=== PATIENT | male | born 1960 ===

== ENCOUNTER 2020-02-19 20:29 | Emergency (ER) | payer SELFPAY ==
[~2020-02-19] VITALS: Ht 180.3 cm; Wt 72.6 kg
[2020-02-19] MEDS ORDERED: CLINDAMYCIN HC300 MG PO (21:21)
--- NOTE | 2020-02-19 21:48 | Emergency Department Note ---
History of Present Illnes History of Present Illness Chief Complaint: General Medicine Complaints History of Present Illness This is a 60 year old male arrives to the ED with wound infections, multiple travel adams noted on evaluation patient is drowsy but awake alert oriented to person place and time refusing to give any further history. Chief Complaint Comment PATIENT IN FROM HOME WITH COMPLAINTS OF STAPH INFECTION ON RIGHT ARM AND LEFT KNEE PAIN AND SWELLING; PATIENT WITH MULTIPLE OPEN SORES NOTED TO ARM AND FOREHEAD. PATIENT STATES "I AM ALLERGIC TO EVERYTHING EXCEPT MORPHINE AND DILAUDID". PATIENT ALERT AND ORIENTED, RESP EVEN AND NONLABORED, APPEARS IN NO DISTRESS, VERY SLEEPY IN TRIAGE Historian: Patient Arrival Mode: Car Onset quality: unable to specify Progression: unable to specify Associated symptoms: Reports denies other symptoms Past Medical/Family History Physician Review I have reviewed the patient's past medical and family history. Any updates have been documented here. Past Medical History Recent Fever: No Clinical Suspicion of Infectio: No New/Unexplained Change in Ment: No Past Medical History: Hypertension Other Surgery: BILATERAL LEG SURGERIES Social History Smoking Cessation: Unknown if ever smoked Family History Family history of heart diseas: No Other Last Tetanus: OOD Review of Systems Review of Systems Constitutional: Reports no symptoms EENTM: Reports no symptoms Cardiovascular: Reports no symptoms Respiratory: Reports no symptoms Gastrointestinal: Reports no symptoms Genitourinary: Reports no symptoms Musculoskeletal: Reports no symptoms Integumentary: Reports as per HPI Neurological: Reports no symptoms Psychological: Reports no symptoms Endocrine: Reports no symptoms Hematological/Lymphatic: Reports no symptoms Physical Exam Related Data Allergies: Coded Allergies: codeine (Verified Allergy, Unknown, 02/19/20) garlic (Verified Allergy, Unknown, 02/19/20) Triage Vital Signs Vital Signs Date Time Temp Pulse Resp B/P (MAP) Pulse Ox O2 Delivery O2 Flow Rate FiO2 02/19/20 20:56 99.2 113 20 184/136 97 Physical Exam CONSTITUTIONAL Constitutional: Present well-developed, Present well-nourished, Present other (poor hygiene) HENT HENT: Present normocephalic, Present atraumatic, Present oropharynx clear/moist, Present nose normal HENT L/R: Present left ext ear normal, Present right ext ear normal EYES Eyes: Reports PERRL, Reports conjunctivae normal NECK Neck: Present ROM normal PULMONARY Pulmonary: Present effort normal, Present breath sounds normal CARDIOVASCULAR Cardiovascular: Present regular rhythm, Present heart sounds normal, Present capillary refill normal, Present normal rate GASTROINTESTINAL Abdominal: Present soft, Present nontender, Present bowel sounds normal GENITOURINARY Genitourinary: Present exam deferred SKIN Skin: Present warm, Present other (multiple abrasions noted in different stages of healing, no palpable abscesses appreciated, wound ulcers noted base visuali zed, compartments otherwise soft) MUSCULOSKELETAL Musculoskeletal: Present ROM normal NEUROLOGICAL Neurological: Present alert, Present oriented x 3, Present no gross motor or sensory deficits PSYCHOLOGICAL Psychological: Present mood/affect normal, Present judgement normal Assessment & Plan Medical Decision Making MDM 60-year-old unkempt male arrives to the ED complaining of wound infections, requesting morphine and Dilaudid. No indication for incision and drainage at this time, patient discharged home antibiotics, instructed to follow-up with a PCP as an outpatient. Assessment & Plan Final Impression: (1) IV drug abuse (2) Abscess Depart Disposition: HOME, SELF-CARE Last Vital Signs Date Time Temp Pulse Resp B/P (MAP) Pulse Ox O2 Delivery O2 Flow Rate FiO2 02/19/20 20:56 99.2 113 20 184/136 97 Home Meds Active Scripts Clindamycin Hcl (CLINDAMYCIN HCL) 300 Mg Capsule, 300 MG PO Q6HR, #40 Prov:YONIS RICHARDS DO 02/19/20 YONIS RICHARDS DO Feb 19, 2020 21:48
== END 2020-02-19 21:30 | disposition home or self-care (01) ==
LOC: ER 21:29
DX: T41 Poisoning by, adverse effect of and underdosing of anesthetics and therapeutic gases (principal); L02.818 Cutaneous abscess of other sites; I10 Essential (primary) hypertension
CPT/HCPCS: 99283